=== PATIENT | female | born 1945 | race Caucasian/White ===

== ENCOUNTER 2017-04-15 08:54 | Emergency (ER) | payer MEDICARE, BC ==
[~2017-04-15] VITALS: Ht 157.5 cm; Wt 70.0 kg
[2017-04-15] MEDS ORDERED: CRESTOR20 MG PO (09:44)
[2017-04-15] MEDS ORDERED: ANASTROZOLE1 MG PO (09:45)
[2017-04-15] MEDS ORDERED: SERTRALINE50 MG PO (09:45)
[2017-04-15] MEDS ORDERED: ATENOLOL/CHLORT1 TAB PO (09:46)
[2017-04-15 09:47] LABS: HEMATOCRIT 36.6 % (37.0-47.0); HEMOGLOBIN 11.5 g/dl (12.0-16.0); IMMATURE GRANULOCYTES 0.2 % (0.0-1.0); MEAN CELL VOLUME 97.3 fL CALC (80.0-100.0); MEAN CORPUSCULAR HGB 30.6 pG CALC (26.0-32.0); MEAN CORPUSCULAR HGB CONC 31.4 g/L CALC (32.0-36.0); NEUT# 3.67 thou/uL (2.00-7.15); RED BLOOD COUNT 3.76 mill/uL (4.20-5.60); RED CELL DISTRI WIDTH 12.8 % (11.5-15.5)
[2017-04-15] MEDS ORDERED: FENOFIBRATE134 MG PO (09:47)
[2017-04-15] MEDS ORDERED: CITALOPRAM20 MG PO (09:48)
[2017-04-15] MEDS ORDERED: CLONAZEPAM1 M1 PO (09:48)
[2017-04-15] MEDS ORDERED: PROAIR HFA IN (09:49)
[2017-04-15] MEDS ORDERED: MYRBETRIQ25 MG (09:51)
[2017-04-15 09:55] LABS: ALBUMIN 3.9 g/dL (3.2-5.0); ALKALINE PHOSPHATASE 32 u/l (38-126); ANION GAP 17 (6-22 (CALC)); BILIRUBIN, TOTAL 0.6 mg/dL (0.0-1.4); BUN 45 mg/dL (8-23); BUN/CREATININE RATIO 50 (12-20 (CALC)); CARBON DIOXIDE 32 mmol/l (22-30); CHLORIDE 102 mmol/l (95-108); CREATININE 0.9 mg/dL (0.5-1.0); GFR > 60 ML/MIN (>=60 (CALC)); GFR FOR AFR.AMER. > 60 ML/MIN (>=60 (CALC)); GLUCOSE 129 mg/dL (82-115); SGOT/AST 42 u/l (9-36); SGPT/ALT 44 u/l (11-66); SODIUM 146 mmol/l (137-146); TOTAL PROTEIN 7.1 g/dL (6.3-8.2); URINE BILIRUBIN - DIPSTICK NEGATIVE (NEGATIVE); URINE BLOOD DIPSTICK NEGATIVE (NEGATIVE); URINE CLARITY CLEAR; URINE COLOR YELLOW; URINE GLUCOSE - DIPSTICK NEGATIVE (NEGATIVE); URINE KETONE NEGATIVE (NEGATIVE); URINE LEUK ESTERASE NEGATIVE (NEGATIVE); URINE NITRITE - DIPSTICK NEGATIVE (Negative); URINE PROTEIN - DIPSTICK NEGATIVE (NEG-TRACE); URINE UROBILINOGEN - DIPSTICK 0.2 E.U./dL (0.2)
[2017-04-15 10:03] LABS: MYOGLOBIN 393 ng/mL (0 - 62)
[2017-04-15 12:28] VITALS: BP 106/55
== END 2017-04-15 12:29 | disposition home or self-care (01) ==
LOC: ED 08:54
PROVIDERS: Emergency Medicine
DX: S09.90XA Unspecified injury of head, initial encounter (principal); S93.402A Sprain of unspecified ligament of left ankle, initial encounter; S93.601A Unspecified sprain of right foot, initial encounter; S43.401A Unspecified sprain of right shoulder joint, initial encounter; W19.XXXA Unspecified fall, initial encounter; Y92.009 Unspecified place in unspecified non-institutional (private) residence as the place of occurrence of the external cause; I10 Essential (primary) hypertension; G12.21 Amyotrophic lateral sclerosis; J44.9 Chronic obstructive pulmonary disease, unspecified; Z99.81 Dependence on supplemental oxygen

== ENCOUNTER 2017-09-29 09:42 | Emergency (ER) | payer MEDICARE, BC ==
[~2017-09-29] VITALS: Ht 157.5 cm; Wt 50.0 kg
[~2017-09-29 09:42] MED LIST: ANASTROZOLE1 MG PO; ATENOLOL/CHLORT1 TAB PO; CITALOPRAM20 MG PO; CLONAZEPAM1 M1 PO; CRESTOR20 MG PO; FENOFIBRATE134 MG PO; MYRBETRIQ25 MG; MYRBETRIQ50 MG PO; PROAIR HFA IN; SERTRALINE50 MG PO
[2017-09-29 10:02] LABS: HEMATOCRIT 36.7 % (37.0-47.0); HEMOGLOBIN 11.5 g/dl (12.0-16.0); IMMATURE GRANULOCYTES 0.3 % (0.0-1.0); MEAN CELL VOLUME 96.6 fL CALC (80.0-100.0); MEAN CORPUSCULAR HGB 30.3 pG CALC (26.0-32.0); MEAN CORPUSCULAR HGB CONC 31.3 g/L CALC (32.0-36.0); NEUT# 4.87 thou/uL (2.00-7.15); RED BLOOD COUNT 3.8 mill/uL (4.20-5.60); RED CELL DISTRI WIDTH 13.5 % (11.5-15.5)
[2017-09-29 10:22] LABS: ALBUMIN 4.3 g/dL (3.2-5.0); ALKALINE PHOSPHATASE 38 u/l (38-126); ANION GAP 18 (6-22 (CALC)); BILIRUBIN, TOTAL 0.5 mg/dL (0.0-1.4); BUN 42 mg/dL (8-23); BUN/CREATININE RATIO 47 (12-20 (CALC)); CARBON DIOXIDE 32 mmol/l (22-30); CHLORIDE 101 mmol/l (95-108); CREATININE 0.9 mg/dL (0.5-1.0); GFR > 60 ML/MIN (>=60 (CALC)); GFR FOR AFR.AMER. > 60 ML/MIN (>=60 (CALC)); POTASSIUM 3.9 mmol/l (3.5-5.1); SGOT/AST 48 u/l (9-36); SGPT/ALT 37 u/l (11-66); SODIUM 147 mmol/l (137-146); TOTAL PROTEIN 7.7 g/dL (6.3-8.2)
[2017-09-29 12:04] LABS: URINE BILIRUBIN - DIPSTICK NEGATIVE (NEGATIVE); URINE BLOOD DIPSTICK NEGATIVE (NEGATIVE); URINE COLOR YELLOW; URINE GLUCOSE - DIPSTICK NEGATIVE (NEGATIVE); URINE KETONE NEGATIVE (NEGATIVE); URINE LEUK ESTERASE NEGATIVE (NEGATIVE); URINE NITRITE - DIPSTICK NEGATIVE (Negative); URINE PROTEIN - DIPSTICK NEGATIVE (NEG-TRACE); URINE SPECIFIC GRAVITY 1.015; URINE UROBILINOGEN - DIPSTICK 0.2 E.U./dL (0.2)
[2017-09-29 12:05] LABS: URINE CLARITY CLEAR
[2017-09-29 13:12] LABS: CHOLESTEROL HDL RATIO 3.9 (<4.4 (CALC))
[2017-09-29 13:47] LABS: TSH, 3RD GENERATION 4.7 uIU/mL (0.47 - 4.68)
[2017-09-29 15:18] VITALS: BP 150/73
== END 2017-09-29 15:30 | disposition home or self-care (01) ==
LOC: ED 09:42
PROVIDERS: Emergency Medicine
DX: R55 Syncope and collapse (principal); I95.9 Hypotension, unspecified; Z91.19 Patient's noncompliance with other medical treatment and regimen; G12.21 Amyotrophic lateral sclerosis; Y92.002 Bathroom of unspecified non-institutional (private) residence as the place of occurrence of the external cause
CPT/HCPCS: Q9967

== ENCOUNTER 2017-10-18 07:18 | Day surgery (SDC) | payer MEDICARE, BC ==
[~2017-10-18] VITALS: Ht 157.5 cm; Wt 59.0 kg
[~2017-10-18 07:18] MED LIST changes: +BROVANA15 MCG/2 M IN; +BUDESONID2 IN
[2017-10-18 08:56] LABS: HEMATOCRIT 32.9 % (37.0-47.0); HEMOGLOBIN 10.2 g/dl (12.0-16.0); IMMATURE GRANULOCYTES 0.2 % (0.0-1.0); MEAN CELL VOLUME 96.5 fL CALC (80.0-100.0); MEAN CORPUSCULAR HGB 29.9 pG CALC (26.0-32.0); NEUT# 3.33 thou/uL (2.00-7.15); RED BLOOD COUNT 3.41 mill/uL (4.20-5.60); RED CELL DISTRI WIDTH 13.2 % (11.5-15.5)
[2017-10-18 09:16] LABS: PROTHROMBIN TIME 11.2 SECONDS (9.0-12.5)
[2017-10-18 10:40] VITALS: BP 105/59
== END 2017-10-18 11:05 | disposition home or self-care (01) ==
LOC: ORM 07:18
PROVIDERS: ATTEND Radiology Diagnostic Radiology
PROC: 0JH60XZ Insertion of Tunneled Vascular Access Device into Chest Subcutaneous Tissue and Fascia, Open Approach (ICD-10-PCS; principal; 2017-10-18)
PROC: 06H033Z Insertion of Infusion Device into Inferior Vena Cava, Percutaneous Approach (ICD-10-PCS; 2017-10-18)
PROC: B5191ZA Fluoroscopy of Inferior Vena Cava using Low Osmolar Contrast, Guidance (ICD-10-PCS; 2017-10-18)
DX: R09.89 Other specified symptoms and signs involving the circulatory and respiratory systems (principal); Z45.2 Encounter for adjustment and management of vascular access device

== ENCOUNTER 2017-10-26 10:58 | Emergency (ER) | payer MEDICARE, BC ==
[~2017-10-26] VITALS: Ht 157.5 cm; Wt 75.0 kg
[2017-10-26 11:33] LABS: HEMATOCRIT 32.2 % (37.0-47.0); HEMOGLOBIN 9.8 g/dl (12.0-16.0); IMMATURE GRANULOCYTES 0.4 % (0.0-1.0); MEAN CELL VOLUME 98.2 fL CALC (80.0-100.0); MEAN CORPUSCULAR HGB 29.9 pG CALC (26.0-32.0); MEAN CORPUSCULAR HGB CONC 30.4 g/L CALC (32.0-36.0); NEUT# 8.52 thou/uL (2.00-7.15); RED BLOOD COUNT 3.28 mill/uL (4.20-5.60); RED CELL DISTRI WIDTH 13.1 % (11.5-15.5)
[2017-10-26 11:50] LABS: ALBUMIN 3.7 g/dL (3.2-5.0); ANION GAP 17 (6-22 (CALC)); BILIRUBIN, TOTAL 0.4 mg/dL (0.0-1.4); BUN 41 mg/dL (8-23); BUN/CREATININE RATIO 52 (12-20 (CALC)); CARBON DIOXIDE 33 mmol/l (22-30); CHLORIDE 101 mmol/l (95-108); CREATININE 0.8 mg/dL (0.5-1.0); GFR > 60 ML/MIN (>=60 (CALC)); GFR FOR AFR.AMER. > 60 ML/MIN (>=60 (CALC)); POTASSIUM 4.6 mmol/l (3.5-5.1); SGOT/AST 38 u/l (9-36); SGPT/ALT 43 u/l (11-66); SODIUM 146 mmol/l (137-146); TOTAL PROTEIN 7.1 g/dL (6.3-8.2)
[2017-10-26 11:53] LABS: ALKALINE PHOSPHATASE 74 u/l (38-126)
[2017-10-26 12:47] VITALS: BP 132/71
== END 2017-10-26 13:03 | disposition home or self-care (01) ==
LOC: ED 10:58
PROVIDERS: Emergency Medicine
DX: S05.11XA Contusion of eyeball and orbital tissues, right eye, initial encounter (principal); I10 Essential (primary) hypertension; J44.9 Chronic obstructive pulmonary disease, unspecified; G12.21 Amyotrophic lateral sclerosis; M25.551 Pain in right hip; W19.XXXA Unspecified fall, initial encounter; Y92.009 Unspecified place in unspecified non-institutional (private) residence as the place of occurrence of the external cause; Z91.81 History of falling